=== PATIENT | female | born 1985 | race Two or more races ===

== ENCOUNTER 2016-03-03 13:29 | Emergency (ER) | payer BC ==
[2016-03-03 16:27] VITALS: BP 117/78
--- NOTE | 2016-03-03 16:55 | UC ---
Complaint Female HPI - HPI Summary HPI Summary: Took test yesterday that turned up positive. , first elective Ab age 18. LMP 01/30/16. Having some mild low abdominal cramping, not sure what to do next. Denies fever, vomiting, vaginal bleeding, or overt pain. - History Of Current Complaint Chief Complaint: UCAbdominalPain Stated Complaint: ABD CRAMPS Time Seen by Provider: 03/03/16 16:31 Hx Obtained From: Patient Hx Last Menstrual Period: 01/30/16 ?: Yes Onset/Duration: Lasting Days Timing: Constant Severity Initially: Mild Severity Currently: Mild Character: Cramping Aggravating Factor(s): Nothing Alleviating Factor(s): Nothing Related Hx: - 2, Para - 0 - Allergies/Home Medications Allergies/Adverse Reactions: Allergies Allergy/AdvReac Type Severity Reaction Status Date / Time Penicillins [PCN] Allergy Hives Verified 03/03/16 16:26 Home Medications: Home Medications NK [No Home Medications Reported] 03/03/16 [History Confirmed 03/03/16] PMH/Surg Hx/FS Hx/Imm Hx Previously Healthy: Yes - Surgical History Surgical History: None - Family History Known Family History: Negative: Blood Disorder - Social History Alcohol Use: Weekly Alcohol Amount: 7 DRINKS/WEEK Substance Use Type: None Smoking Status (MU): Light Every Day Tobacco Smoker Type: Cigarettes Amount Used/How Often: 4 CIG/DAY Cessation Counseling: Patient Advised to Stop Review of Systems Constitutional: Negative Skin: Negative Eyes: Negative ENT: Negative Respiratory: Negative Cardiovascular: Negative Gastrointestinal: Abdominal Pain Genitourinary: Negative Motor: Negative Neurovascular: Negative Musculoskeletal: Negative Neurological: Negative Psychological: Negative All Other Systems Reviewed And Are Negative: Yes Physical Exam Triage Information Reviewed: Yes Appearance: Well-Appearing, No Pain Distress, Well-Nourished Vital Signs: Initial Vital Signs Temp 98.9 F 03/03/16 16:21 Pulse 76 03/03/16 16:21 Resp 16 03/03/16 16:21 BP 117/78 03/03/16 16:21 Pulse Ox 100 03/03/16 16:21 Vital Signs Reviewed: Yes Eye Exam: Normal Eyes: Positive: Conjunctiva Clear ENT Exam: Normal ENT: Positive: Normal ENT inspection, Hearing grossly normal, Pharynx normal, TMs normal Dental Exam: Normal Neck exam: Normal Neck: Positive: Supple, Nontender, No Lymphadenopathy Respiratory Exam: Normal Respiratory: Positive: Chest non-tender, Lungs clear, Normal breath sounds, No respiratory distress, No accessory muscle use Cardiovascular Exam: Normal Cardiovascular: Positive: RRR, No Murmur Abdominal Exam: Normal Abdomen Description: Positive: Nontender, No Organomegaly Musculoskeletal Exam: Normal Neurological Exam: Normal Psychological Exam: Normal Skin Exam: Other - vitiligo on face Complaint Female Dx - Differential Dx/Diagnosis Provider Diagnoses: Discharge - Discharge Plan Condition: Stable Disposition: HOME Patient Education Materials: (ED) Referrals: No Primary Care Phys,NOPCP [Primary Care Provider] - Additional Instructions: As we discussed, low abdominal cramping and discomfort is normal in early . If you have severe pain, heavy bleeding, or fainting, please go to the emergency department. For now, I recommend you quit smoking and continue your normal diet and level of exercise. Start a daily folic acid supplement. This can be in the form of a vitamin or simply a folic acid pill. Please call a provider tomorrow to arrange for care.
== END 2016-03-03 17:05 | disposition home or self-care (01) ==
LOC: UCEAST 13:29
DX: R10.30 Lower abdominal pain, unspecified (principal); Z32.01 Encounter for pregnancy test, result positive; Z88.0 Allergy status to penicillin; F17.210 Nicotine dependence, cigarettes, uncomplicated
CPT/HCPCS: 81002; 81025; 99212; G0463

== ENCOUNTER 2016-10-21 12:07 | Inpatient (IN) | payer BC ==
[2016-10-21 12:46] LABS: Hematocrit 32 % (35-47); Hemoglobin 10.6 g/dl (12.0-16.0); Mean Corpuscular HGB Conc 33 g/dl (31-36); Mean Corpuscular Hemoglobin 27 pg (27-31); Mean Corpuscular Volume 81 fL (80-97); Mean Platelet Volume 9 um3 (7.4-10.4); Red Cell Distribution Width 15 % (10.5-15)
[2016-10-21] MEDS ORDERED: ceFOXitin 2 GM IVPREMIX* 2 GM/50 ML BAG ONE (12:53)
[2016-10-21] MEDS ORDERED: Sodium Citrate/Citric Acid* 15 ML UDC ONE (12:53)
[2016-10-21 13:24] LABS: Albumin 3.4 g/dL (3.2-5.2); BUN/Creatinine Ratio 13.9 (8-20); Calcium 8.9 mg/dL (8.6-10.3); EGFR African American 274.1 (>60); EGFR Non-African American 213.1 (>60); Globulin 2.9 g/dL (2-4); Potassium 3.9 mmol/L (3.5-5.0); Total Bilirubin 0.3 mg/dL (0.2-1.0); Total Protein 6.3 g/dL (6.4-8.9)
[2016-10-21] MEDS ORDERED: ceFOXitin 2 GM IVPREMIX* 2 GM/50 ML BAG IVPB ONE (13:30)
[2016-10-21] MEDS ORDERED: Morphine PF AMP (0.5MG/ML)* 5 MG/10 ML AMP ONE (13:48)
[2016-10-21] MEDS ORDERED: Phenylephrine IV* 40 MCG/ML 10 ML SYRINGE ONE (14:21)
[2016-10-21] MEDS ORDERED: OXYTOCIN* 10 UNITS/ML 1 ML VIAL ONE (14:21)
[2016-10-21] MEDS ORDERED: Ondansetron INJ* 2 MG/ML VIAL ONE (14:21)
[2016-10-21] MEDS ORDERED: Ketorolac INJ* 30 MG/ML 1 ML VIAL ONE (14:21)
[2016-10-21] MEDS ORDERED: Acetaminophen IV 1GM/100ML * 100 ML IVPB ONE (14:43)
[2016-10-21] MEDS ORDERED: DiMENhydriNATE IV* 50 MG/ML VIAL IV PUSH PRN (14:43)
[2016-10-21] MEDS ORDERED: oxyCODONE TAB* 5 MG TAB PO PRN (14:43)
[2016-10-21] MEDS ORDERED: Ondansetron INJ* 2 MG/ML VIAL IV PRN (14:44)
[2016-10-21] MEDS ORDERED: Nalbuphine* 20 MG/ML 1 ML VIAL IV PRN (14:44)
[2016-10-21] MEDS ORDERED: oxyCODONE/Acetamin 5/325 MG* TAB PO PRN (14:44)
[2016-10-21] MEDS ORDERED: Naloxone* 0.4 MG/ML 1 ML VIAL IV PRN (14:44)
[2016-10-21] MEDS ORDERED: Glycerin ADULT SUPP PR PRN (15:00)
[2016-10-21] MEDS ORDERED: Dibucaine 1% 28.35 GM TUBE PR PRN (15:00)
[2016-10-21] MEDS ORDERED: Oxytocin in LR* 20 UNITS/1,000 ML BAG IVPB SCH (15:00)
[2016-10-21] MEDS ORDERED: Witch Hazel PAD* JAR TOPICAL PRN (15:00)
[2016-10-21] MEDS ORDERED: Acetaminophen TAB* 325 MG PO PRN (15:00)
[2016-10-21] MEDS: Simethicone CHEW TAB* 80 MG PO SCH (20:26)
[2016-10-21] MEDS: Ibuprofen TAB* 600 MG PO SCH (20:26)
[2016-10-21] MEDS: Docusate CAP* 100 MG PO SCH (20:27)
[2016-10-22] MEDS ORDERED: oxyCODONE/Acetamin 5/325 MG* TAB PO PRN (06:00)
[2016-10-22 06:29] LABS: Hematocrit 27 % (35-47); Hemoglobin 9.2 g/dl (12.0-16.0); Mean Corpuscular HGB Conc 34 g/dl (31-36); Mean Corpuscular Hemoglobin 27 pg (27-31); Mean Corpuscular Volume 81 fL (80-97); Mean Platelet Volume 9 um3 (7.4-10.4); Red Blood Count 3.38 10^6/ul (4.0-5.4); Red Cell Distribution Width 16 % (10.5-15); White Blood Count 6.1 10^3/ul (3.5-10.8)
--- NOTE | 2016-10-22 07:41 | OP ---
CC: Dr. Javi Foss * DATE OF OPERATION: 10/21/16 - ROOM #[id number] DATE OF : 87 SURGEON: Mitra Vicente MD BUFFING WHEEL FORMER MACHINE: Javi Foss MD ANESTHESIOLOGIST: Dr. Woods. ANESTHESIA: Spinal. PRE-OP DIAGNOSIS: Intrauterine , right sacrum anterior david breech on intrauterine at 38-5/7 days with spontaneous rupture of membranes. POST-OP DIAGNOSIS: Intrauterine , right sacrum anterior david breech on intrauterine at 38-5/7 days with spontaneous rupture of membranes, delivered. OPERATIVE PROCEDURE: Primary low transverse section with lysis of adhesions. ESTIMATED BLOOD LOSS: 600 cc. URINE OUTPUT: 200 cc of clear yellow urine. FLUIDS: 1900 cc of crystalloid. FINDINGS: Revealed david breech right sacrum anterior male with Apgars 8 at one minute and 9 at five minutes. Weight was 7 pounds 5 ounces. No evidence of meconium. No nuchal cord. Placenta, posterior attachment, manually extracted, intact 3-vessel cord. Uterine cavity without any abnormalities or septums appreciated. Normal-appearing tubes and ovaries. Small omental adhesion to the surface of the right fundal portion of the uterus. COMPLICATIONS: None apparent. DISPOSITION: Stable to recovery room. DESCRIPTION OF PROCEDURE: The patient was placed in dorsal lithotomy position. The abdomen was prepped and draped in a sterile standard fashion. The patient was identified with universal protocol for correct procedure, patient, and position. After testing anesthesia to appropriate level, incision was made two fingerbreadths above the pubic symphysis. This was carried down through to the fascia. Fascia was scored in the midline and then the fascial incision was extended with Schroeder scissors both on the right and the left. The fascia was then from the rectus muscle both with blunt and sharp dissection. The midline was incised and the peritoneum was then entered bluntly. The peritoneal incision was extended bluntly. The bladder blade was inserted. Lower uterine segment was identified, tented up with Allis. Incision was made with scalpel. This was carried down through to membranes. The incision was extended laterally and superiorly using bandage scissors. The was delivered right sacrum anterior david breech. The left shoulder was delivered. The right shoulder was noted to have nuchal arm. This was delivered and reduced. The head was then delivered spontaneously. The cord was milked and the cord was then clamped and cut and was handed off to waiting director geophysical laboratory. Placenta was then manually extracted. The uterus was exteriorized and upon exteriorization of the uterus, an omental adhesion was appreciated to the fundus of the uterus. This was clamped with Chelsea, transected, and then suture ligated using 3-0 Polysorb with a LigaSure suture. Hemostasis was assured. The uterine cavity was explored. Noted to be free of any membranes or placental tissue, and no excrescences or abnormalities were appreciated in the intrauterine cavity. After removal of the placenta, the placenta was visualized and noted to be intact, have 3-vessel cord with no abnormalities appreciated. The uterine hysterotomy site was reapproximated in two layers, first layer 0 Vicryl running, second layer 0 Vicryl imbricated. The uterus was returned intraabdominally. Colic gutters were lavaged. Hemostasis was assured at the hysterotomy site. The tubes and ovaries, prior to replacing uterus intraabdominally, were noted to have normal appearance. Peritoneum was then grasped with Kellys x2 and the peritoneum was reapproximated using 3-0 Vicryl in a running fashion. Subfascial area was visualized. Hemostasis was assured. The fascia was then reapproximated using 0 Vicryl x2. A subcuticular fat stitch was placed using 3-0 Vicryl in an interrupted fashion x4, interrupted stitches for complete reapproximation of Dolly's fascia. The skin was then reapproximated using 4-0 Monocryl in a subcuticular fashion. Mastisol and Steri-Strips were applied. All sponge, needle, and instruments counts were correct throughout the case. The patient tolerated the procedure well and went to recovery room in stable condition. [id number]/[facility] #: [id number] MATTHEW
[2016-10-22] MEDS: Simethicone CHEW TAB* 80 MG PO SCH ×5 (08:30→21:06)
[2016-10-22] MEDS: Ibuprofen TAB* 600 MG PO SCH (09:04)
[2016-10-22] MEDS: oxyCODONE/Acetamin 5/325 MG* TAB PO PRN ×5 (09:04→21:06)
[2016-10-22] MEDS: Docusate CAP* 100 MG PO SCH ×3 (09:05→21:06)
[2016-10-22] MEDS: Ibuprofen TAB* 600 MG PO PRN ×2 (16:12→22:19)
[2016-10-22] MEDS: Ferrous Gluconate TAB* 324 MG TAB PO SCH (21:06)
--- NOTE | 2016-10-22 23:39 | PTEDU ---
Patient Name: ROBYN BURDICK ROBYN BURDICK selected video: BBOB: Nurturing Your Gorgeous \T\Growing Baby by to vi ew on 10/22/2016 at 11:37:48 PM from [id number]
[2016-10-23] MEDS: Ibuprofen TAB* 600 MG PO PRN ×2 (04:04→18:05)
[2016-10-23] MEDS: oxyCODONE/Acetamin 5/325 MG* TAB PO PRN ×3 (04:05→14:31)
[2016-10-23] MEDS: Docusate CAP* 100 MG PO SCH ×3 (08:29→21:29)
[2016-10-23] MEDS: Ferrous Gluconate TAB* 324 MG TAB PO SCH ×3 (08:29→21:32)
[2016-10-23] MEDS: Simethicone CHEW TAB* 80 MG PO SCH ×4 (08:29→21:29)
[2016-10-24] MEDS: Ibuprofen TAB* 600 MG PO PRN ×3 (00:20→14:43)
[2016-10-24] MEDS: oxyCODONE/Acetamin 5/325 MG* TAB PO PRN ×4 (00:21→14:43)
[2016-10-24 07:12] VITALS: BP 111/66
[2016-10-24] MEDS ORDERED: Lidocaine 1% MPF* 2 ML VIAL ONE (07:57)
--- NOTE | 2016-10-24 08:18 | PTEDU ---
Patient Name: ROBYN BURDICK ROBYN BURDICK selected video: Never Ever Shake a Baby to view on 10/24/2016 at 8:17:20 AM from [facility] [id number]
--- NOTE | 2016-10-24 08:29 | PTEDU ---
Patient Name: ROBYN BURDICK ROBYN BURDICK selected video: BBOB: Bonding Through Infant Massage to view on 10/24/2016 at 8:27:5 6 AM from [id number]
[2016-10-24] MEDS: Simethicone CHEW TAB* 80 MG PO SCH (10:43)
[2016-10-24] MEDS: Ferrous Gluconate TAB* 324 MG TAB PO SCH (10:43)
[2016-10-24] MEDS: Docusate CAP* 100 MG PO SCH (10:43)
== END 2016-10-24 16:55 | disposition home or self-care (01) | DRG 540 ==
LOC: MCHOBOUT 12:07 → MCHOB 12:28
PROVIDERS: ADMIT Obstetrics & Gynecology; ATTEND Obstetrics & Gynecology
PROC: 0DNT0ZZ (ICD-10-PCS; 2016-10-21)
PROC: 10D00Z1 Extraction of Products of Conception, Low, Open Approach (ICD-10-PCS; principal; 2016-10-21 13:49)
PROC: 0J9N0ZZ Drainage of Right Lower Leg Subcutaneous Tissue and Fascia, Open Approach (ICD-10-PCS; 2016-10-24)
DX: O32.8XX0 Maternal care for other malpresentation of fetus, not applicable or unspecified (principal); D64.9 Anemia, unspecified; O42.02 Full-term premature rupture of membranes, onset of labor within 24 hours of rupture; O90.81 Anemia of the puerperium; O99.89 Other specified diseases and conditions complicating pregnancy, childbirth and the puerperium; N73.6 Female pelvic peritoneal adhesions (postinfective); L02.435 Carbuncle of right lower limb; Z3A.38 38 weeks gestation of pregnancy; Z37.0 Single live birth
CPT/HCPCS: 36415; 80053; 85025; 85027; 86850; 86900; 86901; A9270-GY; J0694; J1885; J2300; J2405; J2590

== ENCOUNTER 2017-04-11 14:34 | Emergency (ER) | payer BC ==
[2017-04-11] MEDS ORDERED: Ketorolac INJ* 60 MG/2 ML VIAL IM ONE (16:23)
[2017-04-11] MEDS ORDERED: Ketorolac INJ* 60 MG/2 ML VIAL ONE (16:23)
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
--- NOTE | 2017-04-11 17:06 | RAD ---
Indication: Headache since last Thursday. Comparison: March 03, 2014 CT. Technique: Noncontrast CT vertex of skull through foramen magnum. Report: The sulci, ventricles, and basal cisterns are normal for age. Murillo matter white matter differentiation is preserved without evidence for edema. No intra or extra axial hemorrhage, mass, or fluid collection detected. Unremarkable visualized orbital contents. Unremarkable calvarium and skull base. Unremarkable scalp. Complete opacification of the RIGHT ethmoid sinus and RIGHT sphenoid sinus. Fluid level at the partially visualized RIGHT maxillary sinus. Clear mastoid air spaces. IMPRESSION: 1. No CT abnormality of the brain evident. 2. RIGHT paranasal sinus disease new compared with the prior exam with fluid level at the maxillary sinus suspicious for acute sinusitis. Correlate with clinical assessment.
[2017-04-11] MEDS ORDERED: DOXYcycline CAP(*) 100 MG PO ONE (17:14)
[2017-04-11 17:35] VITALS: BP 132/85
== END 2017-04-11 17:35 | disposition home or self-care (01) ==
LOC: ED 14:34
DX: J01.00 Acute maxillary sinusitis, unspecified (principal); R51 Headache; F17.210 Nicotine dependence, cigarettes, uncomplicated; Z88.0 Allergy status to penicillin
CPT/HCPCS: 70450; 96372; 99282; A9270-GY; J1885